=== PATIENT | male | born 1965 | race American Indian/Alaskan Native ===

== ENCOUNTER 2021-07-23 17:02 | Inpatient (IN) | payer MEDICARE, OTHER ==
[2021-07-23 18:08] LABS: Basophils # (A) 0.1 k/uL (0-0.2); Basophils % (A) 1 %; Eosinophils # (A) 0.2 k/uL (0-0.7); Eosinophils % (A) 2 %; HCT 50.1 % (39.0-53.0); HGB 16.5 gm/dL (13.0-17.5); Lymphocytes # (A) 2.6 k/uL (1.0-4.8); Lymphocytes % (A) 27 %; MCV 90.9 fL (80.0-100.0); Mean Platelet Volume 7.5; Monocytes # (A) 0.7 k/uL (0-1.0); Monocytes % (A) 7 %; Neutrophils % (A) 62 %; Platelet Count 276 k/uL (150-450); RBC 5.51 m/uL (4.30-5.90); RDW 13.4 % (11.5-15.5); WBC 9.7 k/uL (3.8-10.6)
--- NOTE | 2021-07-23 18:08 | ED ---
Weakness HPI - General Chief complaint: Weakness Stated complaint: sore throat Time Seen by Provider: 07/23/21 17:24 Source: patient, family, RN notes reviewed Mode of arrival: wheelchair Limitations: no limitations - History of Present Illness Initial comments: This is a 56-year-old male who presents with his son with complaints of generalized and left-sided weakness is been going on for at least several weeks. 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 No trauma reported as of a history of hypertension hyperlipidemia COPD he has a smoker. No fevers chills or sweats he states he was started be worked up in [facility] but is moving to [place] to be near family and for further care. He has no local physician he states. He has had some workup done at [facility] we're try ing to obtain information at this time. MD Complaint: generalized weakness, focal weakness, numbness, tingling - Related Data Home Medications Medication Instructions Recorded Confirmed Losartan/Hydrochlorothiazide 1 tab PO DAILY 07/23/21 07/23/21 [Losartan-Hctz 100-25 mg Tab] Metoprolol Succinate (ER) [Toprol 100 mg PO DAILY 07/23/21 07/23/21 Xl] Rosuvastatin Calcium [Crestor] 10 mg PO DAILY 07/23/21 07/23/21 Allergies Allergy/AdvReac Type Severity Reaction Status Date / Time No Known Allergies Allergy Verified 07/23/21 19:39 Review of Systems ROS Statement: Those systems with pertinent positive or pertinent negative responses have been documented in the HPI. ROS Other: All systems not noted in ROS Statement are negative. Past Medical History Past Medical History: Hyperlipidemia, Hypertension History of Any Multi-Drug Resistant Organisms: None Reported Past Surgical History: No Surgical Hx Reported Past Psychological History: Anxiety, Depression, PTSD Smoking Status: Current every day smoker Past Alcohol Use History: None Reported Past Drug Use History: Marijuana General Exam - General Exam Comments Initial Comments: This a well-developed well-nourished awake alert oriented times 3 male Limitations: no limitations General appearance: alert, in no apparent distress Head exam: Present: atraumatic, normocephalic, normal inspection Eye exam: Present: normal appearance, PERRL, EOMI. Absent: scleral icterus, conjunctival injection, periorbital swelling ENT exam: Present: mucous membranes moist, other (Alec on the right throat no exudates) Neck exam: Present: full ROM, other (Palpable lymphadenopathy mass right). Absent: tenderness, meningismus, lymphadenopathy Respiratory exam: Present: normal lung sounds bilaterally. Absent: respiratory distress, wheezes, rales, rhonchi, stridor Cardiovascular Exam: Present: regular rate, normal rhythm, normal heart sounds. Absent: systolic murmur, diastolic murmur, rubs, gallop, clicks GI/Abdominal exam: Present: soft, normal bowel sounds. Absent: distended, tenderness, guarding, rebound, rigid Extremities exam: Present: normal inspection, full ROM, normal capillary refill. 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 Absent: rash Course Vital Signs 07/23/21 07/23/21 07/23/21 17:05 18:33 21:28 Temperature 97.6 F Pulse Rate 94 89 78 Respiratory 18 18 18 Rate Blood Pressure 170/113 164/94 184/121 O2 Sat by Pulse 93 L 94 L 97 Oximetry Medical Decision Making - Medical Decision Making I did discuss findings with the patient and his son was present patient is agreed to be admitted he will be seen by oncology and neurology. Patient is not a candidate for intervention at this time with respect to neurological deficit. Patient apparently is up and take his blood pressure medications. He has had weight loss. Additionally the pertinent medical evaluations from [facility] R not yet in this facility. - Lab Data Result diagrams: 07/23/21 17:54 07/23/21 17:54 Lab Results 07/23/21 07/23/21 07/23/21 Range/Units 17:54 17:54 17:54 WBC 9.7 (3.8-10.6) k/uL RBC 5.51 (4.30-5.90) m/uL Hgb 16.5 (13.0-17.5) gm/dL Hct 50.1 (39.0-53.0) % MCV 90.9 (80.0-100.0) fL MCH 30.0 (25.0-35.0) pg MCHC 33.0 (31.0-37.0) g/dL RDW 13.4 (11.5-15.5) % Plt Count 276 (150-450) k/uL MPV 7.5 Neutrophils % 62 % Lymphocytes % 27 % Monocytes % 7 % Eosinophils % 2 % Basophils % 1 % Neutrophils # 6.0 (1.3-7.7) k/uL Lymphocytes # 2.6 (1.0-4.8) k/uL Monocytes # 0.7 (0-1.0) k/uL Eosinophils # 0.2 (0-0.7) k/uL Basophils # 0.1 (0-0.2) k/uL PT 10.2 (9.0-12.0) sec INR 0.9 (<1.2) APTT 24.9 (22.0-30.0) sec Sodium 141 (137-145) mmol/L Potassium 3.6 (3.5-5.1) mmol/L Chloride 105 (98-107) mmol/L Carbon Dioxide 26 (22-30) mmol/L Anion Gap 10 mmol/L BUN 20 (9-20) mg/dL Creatinine 0.81 (0.66-1.25) mg/dL Est GFR (CKD-EPI)AfAm >90 (>60 ml/min/1.73 sqM) Est GFR (CKD-EPI)NonAf >90 (>60 ml/min/1.73 sqM) Glucose 87 (74-99) mg/dL Calcium 9.3 (8.4-10.2) mg/dL Magnesium 2.3 (1.6-2.3) mg/dL Total Bilirubin 0.7 (0.2-1.3) mg/dL AST 43 (17-59) U/L ALT 38 (4-49) U/L Alkaline Phosphatase 116 (38-126) U/L Creatine Kinase 543 H (55-170) U/L Troponin I (0.000-0.034) ng/mL NT-Pro-B Natriuret Pep pg/mL Total Protein 7.6 (6.3-8.2) g/dL Albumin 4.3 (3.5-5.0) g/dL 07/23/21 07/23/21 Range/Units 17:54 17:54 WBC (3.8-10.6) k/uL RBC (4.30-5.90) m/uL Hgb (13.0-17.5) gm/dL Hct (39.0-53.0) % MCV (80.0-100.0) fL MCH (25.0-35.0) pg MCHC (31.0-37.0) g/dL RDW (11.5-15.5) % Plt Count (150-450) k/uL MPV Neutrophils % % Lymphocytes % % Monocytes % % Eosinophils % % Basophils % % Neutrophils # (1.3-7.7) k/uL Lymphocytes # (1.0-4.8) k/uL Monocytes # (0-1.0) k/uL Eosinophils # (0-0.7) k/uL Basophils # (0-0.2) k/uL PT (9.0-12.0) sec INR (<1.2) APTT (22.0-30.0) sec Sodium (137-145) mmol/L Potassium (3.5-5.1) mmol/L Chloride (98-107) mmol/L Carbon Dioxide (22-30) mmol/L Anion Gap mmol/L BUN (9-20) mg/dL Creatinine (0.66-1.25) mg/dL Est GFR (CKD-EPI)AfAm (>60 ml/min/1.73 sqM) Est GFR (CKD-EPI)NonAf (>60 ml/min/1.73 sqM) Glucose (74-99) mg/dL Calcium (8.4-10.2) mg/dL Magnesium (1.6-2.3) mg/dL Total Bilirubin (0.2-1.3) mg/dL AST (17-59) U/L ALT (4-49) U/L Alkaline Phosphatase (38-126) U/L Creatine Kinase (55-170) U/L Troponin I <0.012 (0.000-0.034) ng/mL NT-Pro-B Natriuret Pep 105 pg/mL Total Protein (6.3-8.2) g/dL Albumin (3.5-5.0) g/dL - EKG Data -: EKG Interpreted by Me EKG shows normal: sinus rhythm, axis, intervals, QRS complexes, ST-T waves Rate: normal EKG Comments: Sinus rhythm a 71 appear interval 174 QRS 84 QT since QTC 414/449 st-t wave changes - Radiology Data Radiology results: report reviewed (Imaging reviewed evidence of a hypodense area in the right brain please see complete report CT with contrast does not seem to demonstrate evidence of mass at this time.), image reviewed Disposition Clinical Impression: CVA (cerebral vascular accident), Neck mass, Failure to thrive in adult Disposition: ADMITTED IP TO THIS [facility] Condition: Fair Referrals: None,Stated [Primary Care Provider] - 1-2 days
[2021-07-23 18:16] LABS: INR 0.9 (<1.2); Partial Thromboplastin Time 24.9 sec (22.0-30.0); Prothrombin Time 10.2 sec (9.0-12.0)
[2021-07-23 18:17] LABS: ALT 38 U/L (4-49); AST 43 U/L (17-59); African American GFR (CKD) >90 (>60 ml/min/1.73 sqM); Albumin 4.3 g/dL (3.5-5.0); Alkaline Phosphatase 116 U/L (38-126); Anion Gap 10 mmol/L; Blood Urea Nitrogen 20 mg/dL (9-20); Calcium 9.3 mg/dL (8.4-10.2); Carbon Dioxide 26 mmol/L (22-30); Chloride 105 mmol/L (98-107); Creatine Kinase 543 U/L (55-170); Glucose 87 mg/dL (74-99); Magnesium 2.3 mg/dL (1.6-2.3); Non-African American GFR(CKD) >90 (>60 ml/min/1.73 sqM); Potassium 3.6 mmol/L (3.5-5.1); Sodium 141 mmol/L (137-145); Total Bilirubin 0.7 mg/dL (0.2-1.3); Total Protein 7.6 g/dL (6.3-8.2)
--- NOTE | 2021-07-23 18:30 | CT ---
EXAMINATION TYPE: CT brain wo con DATE OF EXAM: 07/23/2021 COMPARISON: None HISTORY: LT side weakness, progressing. Pt just diagnosed w/throat ca. CT DLP: 1173.4 mGycm Automated exposure control for dose reduction was used. Images of the brain obtained without contrast. Ventricles have normal size. There is irregular hypodensity in the white matter of the right posterio r frontal lobe and right parietal lobe. There is no mass effect. There is no evidence of intracranial hemorrhage. The calvarium is intact. The skull base is intact. There is normal aeration of the masto id sinuses. IMPRESSION: Right hemisphere white matter hypodensity is irregular. No mass effect. This could relate to large pradhan bacute right internal capsule infarct. Contrast exam recommended to exclude a tumor.
--- NOTE | 2021-07-23 18:37 | XR ---
EXAMINATION TYPE: XR chest 2V DATE OF EXAM: 07/23/2021 COMPARISON: NONE HISTORY: Weakness TECHNIQUE: 2 views FINDINGS: Heart and mediastinum are normal. Lungs are clear. Diaphragm is normal. Bony thorax is inta ct. IMPRESSION: Normal chest.
[2021-07-23] MEDS ORDERED: RX INFO: IV CONTRAST WAS GIVEN 1 EACH MISC MISCELLANE PRN (19:24)
--- NOTE | 2021-07-23 20:19 | CT ---
EXAMINATION TYPE: CT brain w con DATE OF EXAM: 07/23/2021 COMPARISON: Today HISTORY: possible ida mass CT DLP: 1111.4 mGycm Automated exposure control for dose reduction was used. CONTRAST: Performed with IV Contrast, patient injected with 100 mL of Isovue 300. Ventricles have normal size. There is no mass effect. There is no midline shift. There is no sign of intracranial hemorrhage. There is multifocal hypodensity involving the right cerebral hemisphere in t he right internal capsule measuring 7 x 2.5 cm. There is no pathologic enhancement. Calvarium is inta ct. There is normal aeration of the mastoid sinuses. IMPRESSION: Hypodensity in the right temporal lobe and right internal capsule consistent with subacute infarct. N o pathologic enhancement seen to suggest a tumor.
[2021-07-23] MEDS ORDERED: ASPIRIN 325 MG TAB PO STA (21:42)
[2021-07-23] MEDS ORDERED: SODIUM CHLORIDE 0.9% 500 ML 500 ML IV STA (21:46)
[2021-07-23] MEDS ORDERED: METOPROLOL TARTRATE 5 MG/5 ML VIAL IVP STA (21:46)
[2021-07-23] MEDS ORDERED: HYDROmorphone 1 MG/ML 1 ML SYRINGE IVP STA (21:47)
[2021-07-23] MEDS ORDERED: ACETAMINOPHEN TAB 325 MG TAB PO PRN (22:00)
[2021-07-23] MEDS: SODIUM CHLORIDE 0.9% 1,000 ML IV SCH (22:33)
[2021-07-24] MEDS: METOPROLOL SUCCINATE (ER) 100 MG TAB.ER.24H PO SCH (05:58)
[2021-07-24] MEDS: LOSARTAN-HCTZ 50-12.5 MG 1 EACH TAB PO SCH (05:58)
[2021-07-24] MEDS: ASPIRIN 325 MG TAB PO SCH (09:00)
[2021-07-24] MEDS: NICOTINE 14MG/24HR PATCH TRANSDERM SCH (09:01)
[2021-07-24] MEDS: DEXAMETHASONE SOD PHOSPHATE 4 MG/ML 1 ML VIAL IV SCH ×3 (09:01→21:06)
[2021-07-24] MEDS: ATORVASTATIN 20 MG TAB PO SCH (09:01)
[2021-07-24] MEDS: PANTOPRAZOLE 40 MG/10 ML VIAL IVP SCH ×2 (09:02→21:06)
--- NOTE | 2021-07-24 09:31 | P.HPIM ---
History of Present Illness Is a pleasant 56-year-old male came in with the comments of left sided weakness involving the left arm and left face and left leg patient's symptoms started about a week ago. Patient had a CT of the head which did show hypodensity of the right temporal lobe and right middle Still in a subacute infarct in that area which explains his symptoms. Patient does have a tumor on the right neck which was biopsied results of which are still pending and that he was told by the ENT specialist is that is most probably cancer. Patient moved from [place] area wanted to continue his treatment here at [facility] oncology was consulted. Patient denied any fever chills patient smokes about 10 cigarettes per day. Patient to tried Chantix in the past which make him psychotic because of which he has to discontinue that. REVIEW OF SYSTEMS: CONSTITUTIONAL: No fever, no malaise, no fatigue. HEENT: No recent visual problems or hearing problems. Denied any sore throat. CARDIOVASCULAR: No chest pain, orthopnea, PND, no palpitations, no syncope. PULMONARY: No shortness of breath, no cough, no hemoptysis. GASTROINTESTINAL: No diarrhea, no nausea, no vomiting, no abdominal pain. NEUROLOGICAL: As mentioned in HPI. HEMATOLOGICAL: Denies any bleeding or petechiae. GENITOURINARY: Denies any burning micturition, frequency, or urgency. MUSCULOSKELETAL/RHEUMATOLOGICAL: Denies any joint pain, swelling, or any muscle pain. ENDOCRINE: Denies any polyuria or polydipsia. The rest of the 14-point review of systems is negative. PHYSICAL EXAMINATION: GENERAL: The patient is alert and oriented x3, not in any acute distress. Well developed, well nourished. HEENT: Pupils are round and equally reacting to light. EOMI. No scleral icterus. No conjunctival pallor. Normocephalic, atraumatic. No pharyngeal erythema. No thyromegaly. CARDIOVASCULAR: S1 and S2 present. No murmurs, rubs, or gallops. PULMONARY: Chest is clear to auscultation, no wheezing or crackles. ABDOMEN: Soft, nontender, nondistended, normoactive bowel sounds. No palpable organomegaly. MUSCULOSKELETAL: No joint swelling or deformity. EXTREMITIES: No cyanosis, clubbing, or pedal edema. NEUROLOGICAL: She and has 4+/5 strength in the left upper and lower extremity there is some facial droop as well SKIN: No rashes. Assessment and plan -Subacute cerebral vascular infarct involving the right middle severe artery territory probably thrombotic in the right intracapsular area involving left side of the body. She will be continued on statin and aspirin patient does take aspirin at home may need to add Plavix. LDL will be obtained carotid Doppler w as ordered along with echocardiogram, physical therapy and occupational therapy were consulted -Mass in the neck area which was biopsied probably squamous cell carcinoma or oropharyngeal carcinoma, oncology was consulted. -Nicotine use: Counseling was provided -Hyperlipidemia -Hypertension -Depression -DVT prophylaxis: Early ambulation Past Medical History Past Medical History: Hyperlipidemia, Hypertension History of Any Multi-Drug Resistant Organisms: None Reported Past Surgical History: No Surgical Hx Reported Past Psychological History: Anxiety, Depression, PTSD Smoking Status: Current every day smoker Past Alcohol Use History: None Reported Past Drug Use History: Marijuana Medications and Allergies Home Medications Medication Instructions Recorded Confirmed Type Losartan/Hydrochlorothiazide 1 tab PO DAILY 07/23/21 07/23/21 History [Losartan-Hctz 100-25 mg Tab] Metoprolol Succinate (ER) [Toprol 100 mg PO DAILY 07/23/21 07/23/21 History Xl] Rosuvastatin Calcium [Crestor] 10 mg PO DAILY 07/23/21 07/23/21 History Allergies Allergy/AdvReac Type Severity Reaction Status Date / Time No Known Allergies Allergy Verified 07/23/21 19:39 Physical Exam Vitals: Vital Signs Temp Pulse Resp BP Pulse Ox 07/24/21 07:44 63 18 158/89 97 07/24/21 07:00 158/89 07/24/21 05:43 97.4 F L 83 18 182/116 96 07/24/21 02:00 58 L 18 174/110 98 07/24/21 00:00 50 L 18 158/104 94 L 07/23/21 22:35 77 18 179/100 97 07/23/21 21:28 78 18 184/121 97 07/23/21 18:33 89 18 164/94 94 L 07/23/21 17:05 97.6 F 94 18 170/113 93 L Intake and Output 07/23/21 07/24/21 07/24/21 22:59 06:59 14:59 Other: Weight 104.326 kg Results CBC & Chem 7: 07/23/21 17:54 07/23/21 17:54 Labs: Abnormal Lab Results - Last 24 Hours (Table) 07/23/21 Range/Units 17:54 Creatine Kinase 543 H (55-170) U/L
[2021-07-24] MEDS ORDERED: MORPHINE SULFATE 4 MG/ML SYRINGE IVP PRN (10:35)
[2021-07-24] MEDS ORDERED: LORazepam 2 MG/ML INJ IV PRN (10:35)
--- NOTE | 2021-07-24 10:40 | US ---
EXAMINATION TYPE: US carotid duplex BILAT DATE OF EXAM: 07/24/2021 COMPARISON: CT Brain 07/23/2021 CLINICAL HISTORY: 56-year-old male Stenosis. Left hand weakness, slurred speech; smoker x 40 years; p atient stated has enlarged neck lymph nodes with CA diagnosis. TECHNIQUE: Carotid duplex ultrasound examination. Indirect Doppler criteria was utilized. FINDINGS: EXAM MEASUREMENTS: RIGHT: Peak Systolic Velocity (PSV) cm/sec ----- Right CCA: 46.8 ----- Right ICA: 43.5 ----- Right ECA: 114.0 ICA/CCA ratio: 0.9 RIGHT: End Diastole cm/sec ----- Right CCA: 7.7 ----- Right ICA: 5.1 ----- Right ECA: 20.4 LEFT: Peak Systolic Velocity (PSV) cm/sec ----- Left CCA: 33.2 ----- Left ICA: 70.3 ----- Left ECA: 143.1 ICA/CCA ratio: 2.1 LEFT: End Diastole cm/sec ----- Left CCA: 10.4 ----- Left ICA: 28.4 ----- Left ECA: 22.0 VERTEBRALS (direction of flow): Right Vertebral: Antegrade Left Vertebral: Antegrade Rhythm: Normal Manager [employer] Communication notes: Irregular mild to moderate intimal wall thickening is noted at in bilateral caroti d systems with mildly elevated PSV in Left ECA. Incidental finding: Enlarged right upper neck nodes are seen with larger lymph node = 3.8 x 3.4 x 2.7 cm. IMPRESSION: 1. Mild to moderate atherosclerotic change at the bilateral bifurcations. 2. No hemodynamically significant ICA stenosis on either side. 3. Incidental right upper cervical lymphadenopathy measuring up to 3.4 cm short axis. Criteria for Assigning % of Stenosis / Diameter reduction (Estimation based on the indirect measurements of the internal carotid artery velocities (ICA PSV). 1. Normal (no stenosis)=ICA PSV < 125 cm/s: ratio < 2.0: ICA EDV<40 cm/s. 2. Less than 50% stenosis=ICA PSV < 125 cm/s: ratio < 2.0: ICA EDV<40 cm/s. 3. 50 to 69% stenosis=ICA PSV of 125 to 230 cm/s: ration 2.0 ? 4.0: ICA EDV 40-100 cm/s. 4. Greater than 70% stenosis to near occlusion= ICA PSV > 230 cm/s: ratio > 4.0: ICA EDV > 100 cm/s. 5. Near occlusion= ICA PSV velocities may be low or undetectable: variable ratio and ICA EDV. 6. Total occlusion=unable to detect flow.
[2021-07-24] MEDS ORDERED: IOPAMIDOL CONTRAST (ORAL USE) VIAL PO PRN (11:03)
[2021-07-24 11:16] LABS: Chol/HDL Ratio 5.21 Ratio; HDL Cholesterol 31.3 mg/dL (40.00-60.00); LDL Cholesterol,Calculated 110.3 mg/dL (0.0-131.0); VLDL Calculation 21.4 mg/dL (5.00-40.00)
[2021-07-24] MEDS: SODIUM CHLORIDE 0.9% 1,000 ML IV SCH (11:35)
--- NOTE | 2021-07-24 11:35 | P.CONS ---
History of Present Illness - Reason for Consult Consult date: 07/24/21 Neck Mass Requesting physician: Parminder Adan - Chief Complaint Left Arm Weakness - History of Present Illness Maninder is a 56 year old male patient who presents for left arm weakness. He recently underwent work-up for neck mass in [facility], there records have been requested. CT Brain revealed Hypodensities (Likely consistent with CVA, however difficult to determine). Discussed in detail with Radiation oncology and will move forward with MRI and Start Dexamethasone in the interim . Review of Systems All systems: negative Constitutional: Reports as per HPI Past Medical History Past Medical History: Hyperlipidemia, Hypertension History of Any Multi-Drug Resistant Organisms: None Reported Past Surgical History: No Surgical Hx Reported Past Psychological History: Anxiety, Depression, PTSD Smoking Status: Current every day smoker Past Alcohol Use History: None Reported Past Drug Use History: Marijuana Medications and Allergies Home Medications Medication Instructions Recorded Confirmed Type Losartan/Hydrochlorothiazide 1 tab PO DAILY 07/23/21 07/23/21 History [Losartan-Hctz 100-25 mg Tab] Metoprolol Succinate (ER) [Toprol 100 mg PO DAILY 07/23/21 07/23/21 History Xl] Rosuvastatin Calcium [Crestor] 10 mg PO DAILY 07/23/21 07/23/21 History Allergies Allergy/AdvReac Type Severity Reaction Status Date / Time No Known Allergies Allergy Verified 07/23/21 19:39 Physical Exam Vitals: Vital Signs Temp Pulse Resp BP Pulse Ox 07/24/21 07:44 63 18 158/89 97 07/24/21 07:00 158/89 07/24/21 05:43 97.4 F L 83 18 182/116 96 07/24/21 02:00 58 L 18 174/110 98 07/24/21 00:00 50 L 18 158/104 94 L 07/23/21 22:35 77 18 179/100 97 07/23/21 21:28 78 18 184/121 97 07/23/21 18:33 89 18 164/94 94 L 07/23/21 17:05 97.6 F 94 18 170/113 93 L Intake and Output 07/23/21 07/24/21 07/24/21 22:59 06:59 14:59 Other: Weight 104.326 kg Alert and oriented, Tearful Neck: Mass Speech Slurred Heart RRR Lungs: CTA bases diminished Abdomen: Obese Ext: no edema Alert anxious Results CBC & Chem 7: 07/23/21 17:54 07/24/21 12:11 Labs: Abnormal Lab Results - Last 24 Hours (Table) 07/23/21 Range/Units 17:54 Creatine Kinase 543 H (55-170) U/L CT Scan - head: report reviewed Assessment and Plan Plan: Difficult to differentiate CVA versus Mass: - With underlying Malignancy will further evaluate Brain with MRI - Initated Dex and PPI in interim - Discussed in detail with Dr. Rodriges and patient and son Right Neck Mass: - Will obtain records from [facility], Patient states recent biopsy, although they would not start treatment until he has teeth - Staging CTs - Await final MRI of Brain Discussed in detail with Dr. Rodriges, Dr. Adan, RN, and Patient nad son OK for pain medications at this time
[2021-07-24 12:46] LABS: African American GFR (CKD) >90 (>60 ml/min/1.73 sqM); Anion Gap 7 mmol/L; Blood Urea Nitrogen 17 mg/dL (9-20); Carbon Dioxide 24 mmol/L (22-30); Chloride 106 mmol/L (98-107); Glucose 108 mg/dL (74-99); Non-African American GFR(CKD) >90 (>60 ml/min/1.73 sqM); Sodium 137 mmol/L (137-145)
--- NOTE | 2021-07-24 13:46 | P.CNNES ---
History of Present Illness Consult date: 07/24/21 Requesting physician: Parminder Adan Reason for Consult: Recent CVA History of Present Illness: Patient is a 56-year-old right-handed male, who was recently diagnosed with head and neck cancer about couple weeks ago. Patient states that he saw an ENT specialist for right cervical mass involving the angle of the jaw region. The biopsy confirmed cancer. He was recommended by his ENT specialist to eat and enjoy, as he will be undergoing chemo and radiation which will produce significant weight loss. Patient states for last 2 weeks he has been eating as much as he can, going for fishing. Patient states that yesterday he was in his local down in [facility], had some snack, and took 2 tablets of Tylenol, when he almost fainted. He noticed his voice was garbled, and noticed numbness tingling and weakness of the left hand. He was able to drive back home. His son heard about this, and brought him to the hospital yesterday at 5:02 PM. Patient's vital signs on arrival blood pressure 170/113, pulse rate 94, temperature 97.6. Most recent blood pressure is 197/106. Computed tomography scan of the head showed right hemisphere white matter hypodensities, without mass effect. This could relate to large subacute right internal capsular infarct. Contrast enhanced exam recommended to rule out tumor. Patient has history of smoking cigarettes half pack per day for 45 years. He is used to drink heavily, quit alcohol 20 years ago. He has hypertension for a few years and prediabetes for a few years. Patient does not take any antiplatelet medication at home. Patient subsequently underwent computed tomography scan of the head with IV contrast on 07/23/2021, which revealed hypodensity in the right temporal lobe and right internal capsule consistent with subacute infarct. No pathologic enhancement seen to suggest a tumor. EKG shows normal sinus rhythm. Past Medical History Past Medical History: Hyperlipidemia, Hypertension History of Any Multi-Drug Resistant Organisms: None Reported Past Surgical History: No Surgical Hx Reported Past Psychological History: Anxiety, Depression, PTSD Smoking Status: Current every day smoker Past Alcohol Use History: None Reported Past Drug Use History: Marijuana - Past Family History Father History Unknown: Yes Mother Family Medical History: Congestive Heart Failure (CHF) Medications and Allergies Home Medications Medication Instructions Recorded Confirmed Type Losartan/Hydrochlorothiazide 1 tab PO DAILY 07/23/21 07/23/21 History [Losartan-Hctz 100-25 mg Tab] Metoprolol Succinate (ER) [Toprol 100 mg PO DAILY 07/23/21 07/23/21 History Xl] Rosuvastatin Calcium [Crestor] 10 mg PO DAILY 07/23/21 07/23/21 History Allergies Allergy/AdvReac Type Severity Reaction Status Date / Time No Known Allergies Allergy Verified 07/23/21 19:39 Physical Examination - Vital Signs Vital Signs: Vital Signs Temp Pulse Resp BP Pulse Ox 07/24/21 12:41 75 16 197/106 95 07/24/21 11:38 68 18 188/109 96 07/24/21 07:44 63 18 158/89 97 07/24/21 07:00 158/89 07/24/21 05:43 97.4 F L 83 18 182/116 96 07/24/21 02:00 58 L 18 174/110 98 07/24/21 00:00 50 L 18 158/104 94 L 07/23/21 22:35 77 18 179/100 97 07/23/21 21:28 78 18 184/121 97 07/23/21 18:33 89 18 164/94 94 L 07/23/21 17:05 97.6 F 94 18 170/113 93 L Intake and Output 07/23/21 07/24/21 07/24/21 22:59 06:59 14:59 Other: Weight 104.326 kg Patient is a middle aged male, in no acute distress. Patient is alert awake oriented to time place and person. Speech and language functions are normal. Attention, concentration and fund of knowledge is adequate. Patient can name and repeat very well. No aphasia or dysarthria. On cranial examination, pupils are round and reacting to light, visual moreno are full on confrontation, with no neglect. His extraocular muscles are intact with no nystagmus. Patient has left facial weakness mild degree, central type. His tongue protrudes to the midline. Palatal elevation and sensation normal, hearing and shoulder shrug normal, facial sensation normal. Shoulder shrug normal. On muscle strength testing, there is left pronator drift, and the left arm almost hits the bed. Muscle strength is normal in the right arm and right leg distally and proximally. On the left side, deltoid is 4, biceps 5, triceps 5, welder is 4+5-, hip flexion 4+, ankle dorsiflexion 5. Deep tendon reflexes are (right/left) biceps 1+/2+, brachioradialis 1+/2+, knees 3/3+, ankles 2/3, plantars are downgoing bilaterally. Patient has sustained clonus on the left. Sensory to touch is equal on both sides, except left hand and forearm, which is numb on the left as compared to the right. Patient sometimes neglects left side on double simultaneous stimulation. Temperature sensation was equal in the arms and legs. Cerebellar function showed mild to moderate ataxia for [id number] testing on the left, very mild ataxia for [id number] on the left. Normal coordination on the right side. Tone and bulk of muscles normal. Gait deferred. On general examination, there is no carotid bruit or murmur, S1-S2 audible. Abdomen is soft nontender. Chest is clear. Peripheral pulses are present. No edema. Patient has obvious right lower jaw mass. Results - Laboratory Findings CBC and BMP: 07/23/21 17:54 07/24/21 12:11 Abnormal Lab Findings: Abnormal Labs 07/23/21 07/23/21 07/24/21 17:54 17:54 12:11 Glucose 108 H Creatine Kinase 543 H HDL Cholesterol 31.30 L Assessment and Plan Assessment: * Acute ischemic stroke involving right basal ganglia, and right frontal parietal subcortical white matter, in the right MCA vascular territory. Event appears embolic in nature. Rule out cardiac source. * Hypertension * Diabetes * Tobacco use * Recently diagnosed Plan: * Patient probably had a subacute stroke involving right MCA vascular territory mainly involving the basal ganglia, and subcortical white matter in the frontal parietal region. Underlying malignancy cannot be ruled out. Needs further testing including MRI of the brain with contrast. Patient will be started on aspirin 325 mg daily. I would avoid dual antiplatelet medication at this time, as there is no significant carotid stenosis and some potential concern about underlying malignancy. * Carotid Doppler revealed mild to moderate atherosclerotic change at the bilateral bifurcations. No hemodynamically significant ICA stenosis on either side. Antegrade flow in both vertebral arteries. Incidental right upper cervical lymphadenopathy measuring up to 3.4 cm short axis. * Patient undergoing MRI of the brain with and without contrast and MRA of the neck with and without contrast. We will also check MRA of the head to rule out any intracranial atherosclerotic disease or MCA stenosis. * 2-D echo with bubble study, rule out PFO. * Start telemetry monitoring. * Permissive hypertension for next 24 hours. Treatment blood pressure if systolic blood pressure > 200 mmHg. * Lipid panel with cholesterol 163, LDL 110, HDL 31 and triglycerides 107. Continue Lipitor 20 mg. * DVT prophylaxis. * Hemoglobin A1c * We will follow. Time with Patient: Greater than 30
--- NOTE | 2021-07-24 14:39 | MR ---
EXAMINATION TYPE: MR brain wo/w mraneck wo/w con, MR angio head wo con DATE OF EXAM: 07/24/2021 COMPARISON: Carotid ultrasound earlier today. CT brain studies from yesterday. HISTORY: History throat cancer, failure to thrive, abnormal CT, evaluate for mets. TECHNIQUE: Multiplanar, multisequence images of the brain and brainstem is performed without and with IV contras t, utilizing 10 mL intravenous Gadavist . MRA imaging of the neck performed without and with IV contr ast. 2-D and 3-D reconstructive images created on a independent workstation and reviewed. Time-of-fli ght grand traverse of [place] imaging without contrast. FINDINGS: Diffusion weighted images demonstrate areas of increased signal on diffusion-weighted image s with decreased signal on ADC mapping that show T1 hypointensity and T2 hyperintensity consistent wi th evolving acute infarct involving portions of the right frontal and parietal lobes in the MCA distr ibution corresponding to areas of low density on CT. There is locational scattered focus of T2 hyperintensity seen throughout the white matter bilaterally . The ventricular system and cisternal spaces are normal in size and appearance. The brain volume i s age appropriate. Midline structures demonstrate normal morphology. The craniocervical junction appears within normal limits. Post contrast images demonstrate no abnormal enhancing masses to suggest metastatic disease to the brain. The dural venous sinuses appear patent. The visualized sinuses are clear and the globes are intact. MRA neck images show normal three-vessel origin from the aortic arch. There is no significant stenosi s in the common or internal carotid arteries bilaterally including a level of bilateral carotid bulbs . Patent external carotid arteries bilaterally without significant stenosis is evident. There is small caliber left vertebral artery which becomes stenotic or hypoplastic distally. Larger c aliber dominant right vertebral artery fills the basilar artery. There is no significant focal stenos is or aneurysm in the posterior circulation. Hypoplastic bilateral posterior communicating arteries a re present. Anterior circulation shows patent anterior communicating artery with some fenestration but no focal a neurysm. There is shorter length right middle cerebral artery versus the opposite left side. There is abrupt tapering. Branching vessels are less prominent and smaller caliber versus the opposite left s iasbela. IMPRESSION: 1. Evolving acute infarct in the right middle cerebral artery distribution involving portions of the right frontal and temporal lobe is confirmed. 2. No suspicious enhancing masses to suggest metastatic disease to the brain. 3. No significant stenosis in common or internal carotid arteries bilaterally. 4. Abnormality distal right middle cerebral artery with abrupt tapering suggesting significant narrow ing, I suspect there is complete occlusion of one of the branching vessels both which would help acco unt for the acute infarct. Consider direct catheter angiogram follow-up to further evaluate and/or tr eat. A Yellow level critical message alert has been initiated for Romel Kessler MD via the [employer] Critical Results System on 07/24/2021 2:36 PM. This message alert has been sent to Romel Kessler MD via the preferences provided by the clinician for the receipt of Radiology Critical Findings. Message ID [id number].
--- NOTE | 2021-07-24 15:38 | P.CONS ---
History of Present Illness - Reason for Consult Consult date: 07/24/21 new head/neck cancer Requesting physician: Angus Cummings - Chief Complaint weakness (left sided) - History of Present Illness The patient is a 56-year-old male presenting with left-sided weakness secondary to subacute stroke. 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 He states he has been recommended to undergo chemoradiation, but has not yet initiated any therapy. The patient reports that approximately 2-3 months ago he developed right-sided neck swelling. He states he was not having any dysphagia or odynophagia or weight loss at this time. He was living in [facility], and reports he was evaluated by Dr. Evan Krishnamurthy in ENT. He states that he did a fiberoptic exam and did an FNA of the right neck which revealed cancer. We do not have these records at this time. The patient was apparently recommended to undergo chemoradiation as definitive treatment, but he stated he required some dental work first. He states the first oral surgeon he was referred to was unable to accept his insurance. Since his diagnosis, the patient was planning to move back home to live with his son in [place]. The patient states approximately 1 week ago he was out finishing and developed an acute onset of left-sided weakness and feeling poorly. The patient was apparently driven to the side of the state by his son. He presented to the ER on July 23 [address] [place] [address] a CT scan without contrast revealed a right posterior frontal lobe/parietal lobe hypodensity consistent with possible stroke. A CT scan with contrast showed no enhancement, which made malignancy less likely. The patient subsequently underwent MRI of the brain with MRA of the neck. This confirmed evolving acute infarct in the right MCA distribution involving portions of the right frontal and temporal lobe. There were no suspicious masses in the brain. There was an abnormality noted in the distal right MCA with abrupt tapering suggesting occlusion of one of the branching vessels. Review of Systems Constitutional: Reports weakness, Denies chills, Denies fever Eyes: denies blurred vision Ears, nose, mouth and throat: Reports neck lump, Denies dysphagia, Denies odynophagia Cardiovascular: Denies chest pain Respiratory: Denies congestion, Denies cough Gastrointestinal: Denies BRBPR Genitourinary: Denies dysuria, Denies flank pain Integumentary: Denies rash Neurological: Reports aphasia, Reports change in speech, Reports paresthesias, Denies seizures Psychiatric: Denies anxiety Past Medical History Past Medical History: Hyperlipidemia, Hypertension History of Any Multi-Drug Resistant Organisms: None Reported Past Surgical History: No Surgical Hx Reported Past Psychological History: Anxiety, Depression, PTSD Smoking Status: Current every day smoker Past Alcohol Use History: None Reported Past Drug Use History: Marijuana Medications and Allergies Home Medications Medication Instructions Recorded Confirmed Type Losartan/Hydrochlorothiazide 1 tab PO DAILY 07/23/21 07/23/21 History [Losartan-Hctz 100-25 mg Tab] Metoprolol Succinate (ER) [Toprol 100 mg PO DAILY 07/23/21 07/23/21 History Xl] Rosuvastatin Calcium [Crestor] 10 mg PO DAILY 07/23/21 07/23/21 History Allergies Allergy/AdvReac Type Severity Reaction Status Date / Time No Known Allergies Allergy Verified 07/23/21 19:39 Physical Exam Vitals: Vital Signs Temp Pulse Pulse Resp BP BP Pulse Ox 07/24/21 14:45 97.8 F 77 183/118 93 L 07/24/21 12:41 75 16 197/106 95 07/24/21 11:38 68 18 188/109 96 07/24/21 07:44 63 18 158/89 97 07/24/21 07:00 158/89 07/24/21 05:43 97.4 F L 83 18 182/116 96 07/24/21 02:00 58 L 18 174/110 98 07/24/21 00:00 50 L 18 158/104 94 L 07/23/21 22:35 77 18 179/100 97 07/23/21 21:28 78 18 184/121 97 07/23/21 18:33 89 18 164/94 94 L 07/23/21 17:05 97.6 F 94 18 170/113 93 L - Constitutional General appearance: no acute distress - EENT Eyes: EOMI, PERRLA ENT: NA/AT - Neck Neck: lymphadenopathy (Right neck level II/III palpable adenopathy around 4 cm conglomerate- mobile) - Respiratory Respiratory: bilateral: CTA, wheezing (mild end-exp) - Cardiovascular Rhythm: regular - Gastrointestinal General gastrointestinal: no tenderness - Integumentary Integumentary: no pale, no rash - Neurologic Neurologic: CNII-XII intact - Musculoskeletal Musculoskeletal: left sided weakness (left upper extremity weakness 4/5 plus left facial droop) - Psychiatric Psychiatric: A&O x's 3, appropriate affect Results CBC & Chem 7: 07/23/21 17:54 07/24/21 12:11 Labs: Abnormal Lab Results - Last 24 Hours (Table) 07/23/21 07/23/21 07/24/21 Range/Units 17:54 17:54 12:11 Glucose 108 H (74-99) mg/dL Creatine Kinase 543 H (55-170) U/L HDL Cholesterol 31.30 L (40.00-60.00) mg/dL MRI - head: report reviewed, image reviewed Assessment and Plan Assessment: The patient is a 56-year-old male presenting with left-sided weakness secondary to subacute stroke. 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 He states he has been recommended to undergo chemora diation, but has not yet initiated any therapy. Plan: 1. Subacute CVA: As noted above, the patient is symptomatic with slurred speech and left upper extremity weakness. Review of MRI of brain as well as CT is unremarkable for metastatic disease. Continue CVA management per neurology. 2. Head/neck cancer: As noted above, the patient's workup has been at an outside hospital. Based on his MRA of the neck, I am able to see a 3 x 4 cm abnormal area of enhancement involving the right tonsil/base of tongue region. This likely represents his primary cancer with ipsilateral neck adenopathy. This is highly likely to be a squamous cell carcinoma, but we will request his outside records. He will need dental evaluation with extractions, and ideally would undergo PET/CT prior to treatment initiation. We will discuss this in more detail as his current medical issues are managed. Time with Patient: Greater than 30
[2021-07-24 16:37] LABS: Glucose,Whole Blood 185 mg/dL (75-99)
[2021-07-24 20:23] LABS: Glucose,Whole Blood 136 mg/dL (75-99)
[2021-07-24] MEDS: INSULIN ASPART (NovoLOG) 100 UNIT/ML VIAL SQ SCH (20:58)
[2021-07-24] MEDS: SENNOSIDES-DOCUSATE SODIUM 1 EACH TAB PO SCH (21:06)
--- NOTE | 2021-07-25 03:19 | CT ---
EXAMINATION TYPE: CT ChestAbdPelvis w con DATE OF EXAM: 07/24/2021 COMPARISON: None HISTORY: History of throat cancer, abnormal brain ct. Staging. CT DLP: 1619 mGycm Automated exposure control for dose reduction was used. CONTRAST: Performed with IV Contrast, patient injected with 100 mL of Isovue 300. Images obtained from the thoracic inlet to the floor the pelvis with IV contrast. The lungs are clear of infiltrate. There is no pleural effusion. There is no mediastinal adenopathy. Thoracic aorta is intact. There is no aneurysm or dissection. There are no hilar masses. Heart size i s normal. There is no pericardial effusion. Liver spleen stomach pancreas gallbladder appear normal. The bile ducts are not dilated. There is no adrenal mass. Kidneys show satisfactory contrast opacification. There is no hydronephrosis. Delayed i mages show normal renal excretion. There is no retroperitoneal adenopathy. Ureters are not dilated. B ladder distends smoothly. There is prostatic calcification. There is no inguinal hernia. There is no free fluid in the pelvis. There is no mesenteric edema. There is no ascites or free air. There is no sign of a bowel obstructio n. Appendix appears normal. Thoracic and lumbar vertebra appear intact. There is no evidence of focal bone destruction. There is no compression fracture. There is minor spurring of the endplates. Sternum is intact. The bony pelvis appears intact. Hip joints appear normal. Shoulder joints appear intact. There is no evidence of rib fracture. IMPRESSION: Negative CT scan chest abdomen pelvis. No evidence of metastatic disease.
[2021-07-25 06:00] LABS: Glucose,Whole Blood 101 mg/dL (75-99)
[2021-07-25] MEDS: INSULIN ASPART (NovoLOG) 100 UNIT/ML VIAL SQ SCH ×4 (06:04→21:22)
--- NOTE | 2021-07-25 07:41 | ECHOF ---
Referral Reason:Acute CVA, MEASUREMENTS -------- HEIGHT: 172.7 cm WEIGHT: 104.3 kg BP: IVSd: 1.4 cm (0.6 - 1.1) LVIDd: 3.1 cm (3.9 - 5.3) LVPWd: 1.5 cm (0.6 - 1.1) IVSs: 1.6 cm LVIDs: 1.6 cm LVPWs: 2.0 cm LAESV Index (A-L): 12.16 ml/m Ao Diam: 3.4 cm (2.0 - 3.7) AV Cusp: 2.2 cm (1.5 - 2.6) LA Diam: 3.4 cm (2.7 - 3.8) MV EXCURSION: 7.636 mm (> 18.000) MV EF SLOPE: 40 mm/s (70 - 150) EPSS: 0.6 cm FINDINGS -------- This was a technically good study. The left ventricular size is normal. There is moderate concentric left ventricular hypertrophy. O verall left ventricular systolic function is normal with, an EF between 55 - 60 %. The right ventricle is normal in size. The left atrial size is normal. The right atrial size is normal. Contrast study was performed with 1 iv injection of 8 ccs of agitated normal saline at rest. Interatrial and interventricular septum intact. The aortic valve is trileaflet and appears structurally normal. The mitral valve is normal. There is trace mitral regurgitation. The tricuspid valve appears structurally normal. Trace tricuspid regurgitation present. Right satnam tricular systolic pressure is normal at < 35 mmHg. There is no pulmonic regurgitation present. The aortic root size is normal. Normal inferior vena cava with normal inspiratory collapse consistent with estimated right atrial pre ssure of 5 mmHg. There is no pericardial effusion. CONCLUSIONS -------- 1. The left ventricular size is normal. 2. There is moderate concentric left ventricular hypertrophy. 3. Overall left ventricular systolic function is normal with, an EF between 55 - 60 %. 4. Contrast study was performed with 1 iv injection of 8 ccs of agitated normal saline at rest. 5. There is trace mitral regurgitation. 6. Trace tricuspid regurgitation present. 7. There is no pericardial effusion. VENEER JOINTER HELPER: Cyn Villalpando RDCS
[2021-07-25] MEDS: ASPIRIN 325 MG TAB PO SCH (08:45)
[2021-07-25] MEDS: SENNOSIDES-DOCUSATE SODIUM 1 EACH TAB PO SCH ×2 (08:45→19:38)
[2021-07-25] MEDS: ATORVASTATIN 20 MG TAB PO SCH (08:45)
[2021-07-25] MEDS: METOPROLOL SUCCINATE (ER) 100 MG TAB.ER.24H PO SCH (08:45)
[2021-07-25] MEDS: NICOTINE 14MG/24HR PATCH TRANSDERM SCH (08:46)
[2021-07-25] MEDS: polyethylene glycoL 3350 17 GM POWD.PACK PO SCH (08:46)
[2021-07-25] MEDS: PANTOPRAZOLE 40 MG/10 ML VIAL IVP SCH (08:46)
[2021-07-25] MEDS: LOSARTAN-HCTZ 50-12.5 MG 1 EACH TAB PO SCH (08:46)
[2021-07-25] MEDS: DEXAMETHASONE SOD PHOSPHATE 4 MG/ML 1 ML VIAL IV SCH (08:46)
--- NOTE | 2021-07-25 11:30 | P.PN ---
Subjective 56-year-old male came in with the comments of left sided weakness involving the left arm and left face and left leg patient's symptoms started about a week ago. Patient had a CT of the head which did show hypodensity of the right temporal lobe and right middle Still in a subacute infarct in that area which explains his symptoms. Patient does have a tumor on the right neck which was biopsied results of which are still pending and that he was told by the ENT specialist is that is most probably cancer. Patient moved from [place] area wanted to continue his treatment here at [place] oncology was consulted. Patient denied any fever chills patient smokes about 10 cigarettes per day. Patient to tried Chantix in the past which make him psychotic because of which he has to discontinue that. 07/25/2021 Patient still has weakness on the left side of the body. Patient is being evaluated by [facility] for possible inpatient rehabilitation placement patient had an MRI of the head along with the MRA which showed possible complete occlusion of the distal middle cerebral artery. Patient doesn't have any worsening symptoms of stroke. Neurology is recommending goal antiplatelet therapy. Patient was also evaluated by oncology due to metastatic workup with a CT abdomen and pelvis which did not show any metastatic disease. Patient had an echocardiogram did not show any significant abnormality either. Constitutional: Denied any fatigue denied any fever. Cardio vascular: denied any chest pain, palpitations Gastrointestinal denied any nausea vomiting Pulmonary: Denied any shortness of breath cough Neurologic denied any new focal deficits All inpatient medications were reviewed and appropriate changes in these medications as dictated in the interval history and assessment and plan. PHYSICAL EXAMINATION: GENERAL: The patient is alert and oriented x3, not in any acute distress. Well developed, well nourished. HEENT: Pupils are round and equally reacting to light. EOMI. No scleral icterus. No conjunctival pallor. Normocephalic, atraumatic. No pharyngeal erythema. No thyromegaly. CARDIOVASCULAR: S1 and S2 present. No murmurs, rubs, or gallops. PULMONARY: Chest is clear to auscultation, no wheezing or crackles. ABDOMEN: Soft, nontender, nondistended, normoactive bowel sounds. No palpable organomegaly. MUSCULOSKELETAL: No joint swelling or deformity. EXTREMITIES: No cyanosis, clubbing, or pedal edema. NEUROLOGICAL: She and has 4+/5 strength in the left upper and lower extremity there is some facial droop as well SKIN: No rashes. Assessment and plan -Subacute cerebral vascular infarct involving the right middle cerebral artery territory probably thrombotic in the right intracapsular area involving left side of the body. She will be continued on statin and aspirin and Plavix. LDL is 110 patient's hemoglobin A1c is 5.9, echocardiogram and MRI, MRA as well as CT abdomen and pelvis, chest as mentioned above. Patient is being evaluated for inpatient intimidation placement -Mass in the neck area which was biopsied probably squamous cell carcinoma or oropharyngeal carcinoma, oncology evaluated the patient metastatic workup is negative further management as an outpatient. -Nicotine use: Counseling was provided -Hyperlipidemia -Hypertension -Depression -DVT prophylaxis: Early ambulation Objective - Vital Signs Vital signs: Vital Signs Temp 97.7 F 07/25/21 08:00 Pulse 79 07/25/21 08:00 Resp 16 07/25/21 03:50 BP 176/110 07/25/21 08:00 Pulse Ox 95 07/25/21 08:00 Intake & Output 07/24/21 07/25/21 07/25/21 18:59 06:59 18:59 Intake Total 120 480 120 Output Total 450 Balance 120 30 120 Weight 103.2 kg Intake: Oral 120 480 120 Output: Urine 450 Other: # Voids 3 - Labs CBC & Chem 7: 07/23/21 17:54 07/24/21 12:11 Labs: Abnormal Lab Results - Last 24 Hours (Table) 07/24/21 07/24/21 07/24/21 Range/Units 12:11 16:35 20:11 Glucose 108 H (74-99) mg/dL POC Glucose (mg/dL) 185 H 136 H (75-99) mg/dL 07/25/21 Range/Units 05:41 Glucose (74-99) mg/dL POC Glucose (mg/dL) 101 H (75-99) mg/dL
[2021-07-25 11:51] LABS: Glucose,Whole Blood 93 mg/dL (75-99)
[2021-07-25] MEDS: amLODIPine 5 MG TAB PO SCH (12:24)
[2021-07-25] MEDS: CLOPIDOGREL 75 MG TAB PO SCH (12:24)
--- NOTE | 2021-07-25 12:27 | P.CONS ---
History of Present Illness - Chief Complaint Gait disturbance, left hemiparesthesias - History of Present Illness I had the opportunity to see patient for inpatient rehab consultation with regard to gait disturbance. Patient admitted to [facility] July 23 with acute onset left-sided weakness. Seen by neurology, . his son. Seen by Dr. 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 Chest x-ray negative. Head CT demonstrates acute right temporal and internal capsule infarcts. Negat nahun for tumor. Carotid Doppler demonstrates mild to moderate bilateral atherosclerosis. Brain MRI/MRA with some sternal doses left vertebral. CT chest abdomen and pelvis negative. PT and OT prescribed but I do not observe any notes. Speech therapy reports speech intelligible. Previous functional history as elicited patient: 56-year-old right-handed white male is single lives and 2 floor home with son. Patient is on disability. Son works full-time. Patient previously independent with cooking, laundry, driving, standing shower and gait without device one week prior to admission. PCP was Dr. White in [place]. Denies tobacco or alcohol. Review of Systems Review of systems: ENT: Denies sneezes or discharge. Eyes: Denies discharge or photophobia. Cardiac: Denies chest pain or palpitation. Pulmonary: Denies cough or shortness of breath. Gastrointestinal: Denies nausea, emesis, constipation, diarrhea. Genitourinary: Denies discharge or frequency. Musculoskeletal: Denies muscle or bone aches. Neurologic: Left-sided weakness and numbness. Endocrine: Denies shakes or sweats. Oncology: Denies cancers. Dermatologic: Denies rash, itching, pruritus. ALLERGY/immunology: Denies sneezes, rashes. Past Medical History Past Medical History: Hyperlipidemia, Hypertension History of Any Multi-Drug Resistant Organisms: None Reported Past Surgical History: No Surgical Hx Reported Past Psychological History: Anxiety, Depression, PTSD Smoking Status: Current every day smoker Past Alcohol Use History: None Reported Past Drug Use History: Marijuana - Past Family History Father History Unknown: Yes Mother Family Medical History: Congestive Heart Failure (CHF) Medications and Allergies Home Medications Medication Instructions Recorded Confirmed Type Losartan/Hydrochlorothiazide 1 tab PO DAILY 07/23/21 07/23/21 History [Losartan-Hctz 100-25 mg Tab] Metoprolol Succinate (ER) [Toprol 100 mg PO DAILY 07/23/21 07/23/21 History Xl] Rosuvastatin Calcium [Crestor] 10 mg PO DAILY 07/23/21 07/23/21 History Allergies Allergy/AdvReac Type Severity Reaction Status Date / Time No Known Allergies Allergy Verified 07/23/21 19:39 Physical Exam Vitals: Vital Signs Temp Pulse Pulse Resp BP BP Pulse Ox 07/25/21 08:00 97.7 F 79 176/110 95 07/25/21 03:50 98.5 F 58 L 16 138/96 97 07/25/21 02:00 65 16 07/25/21 00:00 98.2 F 65 16 184/110 93 L 07/24/21 20:00 98.4 F 80 18 177/100 94 L 07/24/21 16:00 71 07/24/21 14:45 97.8 F 77 183/118 93 L 07/24/21 12:41 75 16 197/106 95 Intake and Output 07/24/21 07/25/21 07/25/21 22:59 06:59 14:59 Intake Total 120 480 120 Output Total 450 Balance 120 30 120 Intake: Oral 120 480 120 Output: Urine 450 Other: # Voids 1 3 Weight 103.2 kg Skin: Good color, texture, turgor. General: Overweight build and comfortable appearance. Head: Normocephalic, atraumatic. Eyes: Symmetric. Pupils equal round. Ears: Symmetric. Hearing within normal limits. Mouth: Clear. Neck: Supple. Carotid without bruit. Cardiac: Regular rate and rhythm. Lungs: Clear anteriorly and posteriorly. Abdomen: Soft active nontender. Extremities: Normal tone. Neurological: Mental status: Alert, cooperative, pleasant. Cranial nerves: Symmetric facial tone and trapezius. Motor: Normal strength and isolation right side. Left arm in flexion synergy and left leg in extension synergy. Sensation: Intact throughout. DTRs: Symmetric and equal throughout. Mobility: Sits with assistance. Results CBC & Chem 7: 07/23/21 17:54 07/24/21 12:11 Labs: Abnormal Lab Results - Last 24 Hours (Table) 07/24/21 07/24/21 07/24/21 Range/Units 12:11 16:35 20:11 Glucose 108 H (74-99) mg/dL POC Glucose (mg/dL) 185 H 136 H (75-99) mg/dL 07/25/21 Range/Units 05:41 Glucose (74-99) mg/dL POC Glucose (mg/dL) 101 H (75-99) mg/dL Assessment and Plan (1) CVA (cerebral vascular accident) Current Visit: Yes Status: Acute Code(s): I63.9 - CEREBRAL INFARCTION, UNSPECIFIED SNOMED Code(s): 862833408 (2) Neck mass Current Visit: Yes Status: Acute Code(s): R22.1 - LOCALIZED SWELLING, MASS AND LUMP, NECK SNOMED Code(s): 004215821 Plan: Impression: 1. Gait disturbance due to stroke result in left hemiparesthesias. 2. Recent had neck cancer most likely squamous. 3. Hypertension. 4. Dyslipidemia. Comments and plan: At this time speech therapies following patient. PT and OT prescribed. Will require PT and OT notes for any possible inpatient rehab which would seem likely.
[2021-07-25 14:02] VITALS: BMI 34.6
[2021-07-25 16:51] LABS: Glucose,Whole Blood 126 mg/dL (75-99)
--- NOTE | 2021-07-25 17:11 | P.PN ---
Subjective Progress Note Date: 07/25/21 Principal diagnosis: head/neck malignancy?, CVA In f/u today pt states he is actually feeling pretty good. He slept well last night and he ate food today. He does note some mild dysphagia/odynophagia with certain foods but he does ok with soft things and liquids so far. Denies any other c/o. Objective - Vital Signs Vital signs: Vital Signs Temp 97.7 F 07/25/21 08:00 Pulse 79 07/25/21 08:00 Resp 16 07/25/21 03:50 BP 176/110 07/25/21 08:00 Pulse Ox 95 07/25/21 08:00 Intake & Output 07/24/21 07/25/21 07/25/21 18:59 06:59 18:59 Intake Total 120 480 120 Output Total 450 Balance 120 30 120 Weight 103.2 kg Intake: Oral 120 480 120 Output: Urine 450 Other: # Voids 3 - Constitutional General appearance: Present: average body habitus, cooperative, no acute distress - EENT Eyes: Present: anicteric sclerae ENT: Present: hearing grossly normal - Neck Neck: Present: lymphadenopathy (rt neck/submandibular4-5cm hard mass, fixed. No other cervical or axillary adenopathy) - Respiratory Respiratory: bilateral: CTA - Cardiovascular Rhythm: regular Heart sounds: normal: S1, S2 Abnormal Heart Sounds: Absent: systolic murmur, diastolic murmur, rub, S3 Gallop, S4 Gallop, click, other - Peripheral edema leg Peripheral Edema: bilateral: None - Gastrointestinal General gastrointestinal: Present: normal bowel sounds, soft - Psychiatric Psychiatric: Present: A&O x's 3, appropriate affect, intact judgment & insight - Labs CBC & Chem 7: 07/23/21 17:54 07/24/21 12:11 Labs: Abnormal Lab Results - Last 24 Hours (Table) 07/23/21 07/24/21 07/24/21 Range/Units 17:54 12:11 16:35 Glucose 108 H (74-99) mg/dL POC Glucose (mg/dL) 185 H (75-99) mg/dL HDL Cholesterol 31.30 L (40.00-60.00) mg/dL 07/24/21 07/25/21 Range/Units 20:11 05:41 Glucose (74-99) mg/dL POC Glucose (mg/dL) 136 H 101 H (75-99) mg/dL HDL Cholesterol (40.00-60.00) mg/dL - Imaging and Cardiology CT scan - abdomen: report reviewed CT scan - chest: report reviewed CT scan - pelvis: report reviewed MRI - head: report reviewed Assessment and Plan (1) Neck mass Narrative/Plan: Still pending reports from biopsy done in [facility]-confirmed with RN that request was sent. CT CAP and MRI brain results reviewed with pt. No evidence of metastatic cancer. Will stop dex. Pt stated that he will be staying in the area for now. He wants to pursue treatment here. We will plan for f/u. Based on pathology from neck mass biopsy treatment plan can be defined. Rad Onc has already evaluated pt. Current Visit: Yes Status: Acute Priority: High Code(s): R22.1 - LOCALIZED SWELLING, MASS AND LUMP, NECK SNOMED Code(s): 190615827 Plan: Pending Neuro eval and recs.
[2021-07-25] MEDS: PANTOPRAZOLE 40 MG TABLET PO SCH (19:42)
[2021-07-25 20:24] LABS: Glucose,Whole Blood 92 mg/dL (75-99)
--- NOTE | 2021-07-25 23:42 | P.PN ---
Subjective Progress Note Date: 07/25/21 Patient was seen for a follow-up. Patient states he is feeling much better. His arm is not as numb. He is moving around better, not leaning as much as before. He is able to get up by himself. No new focal symptoms. No headache. Objective - Vital Signs Vital signs: Vital Signs Temp 97.4 F L 07/25/21 20:21 Pulse 70 07/25/21 20:21 Resp 20 07/25/21 20:21 BP 190/115 07/25/21 20:21 Pulse Ox 97 07/25/21 20:21 Intake & Output 07/25/21 07/25/21 07/26/21 06:59 18:59 06:59 Intake Total 480 1060 Output Total 450 Balance 30 1060 Weight 103.2 kg 103.2 kg Intake: Oral 480 1060 Output: Urine 450 Other: # Voids 3 1 - Exam Patient's mental status, speech and language functions are normal. No aphasia. No dysarthria. Cranial nerves pupils are round and reacting, visual moreno are full on confrontation with no neglect. Extraocular muscles are intact. Patient has mild left facial weakness, better than yesterday. Tongue protrudes to the midline. Facial sensations normal. On muscle strength testing, there is mild to moderate left pronator drift. It does not droop as much as compared to yesterday. His strength is normal in the right arm and right leg. On the left side his deltoid is 5-, biceps 5, triceps 5, lopper 5-. Strength of the lower extremities are normal. Reflexes are 2+ in the right upper limb, 3 in the left upper limb. Knees are 3, ankles 1+ on the right, 2+ to 3 on the left. Patient has Babinski only on the left. Sensory touch is equal, except left hand and forearm which is decreased as compared to the right. Patient has kebi-me-qlebdmky ataxia for [id number]-[id number] testing on the left. No ataxia in the leg. Gait deferred. - Labs CBC & Chem 7: 07/23/21 17:54 07/24/21 12:11 Labs: Abnormal Lab Results - Last 24 Hours (Table) 07/25/21 07/25/21 Range/Units 05:41 16:50 POC Glucose (mg/dL) 101 H 126 H (75-99) mg/dL Assessment and Plan Assessment: * Acute ischemic stroke involving right basal ganglia, and right frontal parietal subcortical white matter, in the right MCA vascular territory. Event appears embolic in nature. Rule out cardiac source. * Hypertension * Diabetes * Tobacco use * Recently diagnosed neck mass, malignancy. No evidence of metastatic disease. Plan: * MRI of the brain revealed evolving acute infarct in the right middle cerebral artery distribution involving portions of the right frontal and temporal lobe. No suspicious enhancing masses to suggest metastatic disease to the brain. * MRA of the neck revealed no significant stenosis in the common or internal carotid arteries bilaterally. * MRA of the brain revealed abnormality distal right middle cerebral artery with abrupt tapering suggesting significant narrowing. Suspect there is complete occlusion of one of the branching vessels, both which would help account for the acute infarct. Consider direct catheter angiogram. * Patient will be started on dual antiplatelet medication including aspirin 81 mg and Plavix 75 mg because of right MCA stenosis. Patient is clinically better. No need for neuro intervention at this time. * Computed tomography scan of abdomen and pelvis and the chest showed no metastasis. * Carotid Doppler revealed mild to moderate atherosclerotic change at the bilateral bifurcations. No hemodynamically significant ICA stenosis on either side. Antegrade flow in both vertebral arteries. Incidental right upper cervical lymphadenopathy measuring up to 3.4 cm short axis. * 2-D echo revealed normal left ventricular size. Moderate concentric LVH. EF is between 55-60%. Agitated saline documented no interatrial or interventric ular septal defect. * Telemetry monitoring showing normal sinus rhythm. No other arrhythmias. * May consider slowly improving the blood pressure. Treat if blood pressure > 180/110. * Lipid panel with cholesterol 163, LDL 110, HDL 31 and triglycerides 107. Continue Lipitor 20 mg. * Hemoglobin A1c 5.9 * PT and OT. * Start heparin 5000 units subcu twice a day for DVT prophylaxis.
[2021-07-26] MEDS: HEPARIN SODIUM,PORCINE/PF 5,000 UNIT/0.5 ML SYRINGE SQ SCH ×2 (00:12→08:42)
--- NOTE | 2021-07-26 06:51 | P.PN ---
Progress Note - Text Accept for IPR, will require insurance authorization.
[2021-07-26] MEDS: INSULIN ASPART (NovoLOG) 100 UNIT/ML VIAL SQ SCH (07:05)
[2021-07-26] MEDS: NICOTINE 14MG/24HR PATCH TRANSDERM SCH (08:39)
[2021-07-26] MEDS: PANTOPRAZOLE 40 MG TABLET PO SCH (08:40)
[2021-07-26] MEDS: amLODIPine 5 MG TAB PO SCH (08:40)
[2021-07-26] MEDS: METOPROLOL SUCCINATE (ER) 100 MG TAB.ER.24H PO SCH (08:40)
[2021-07-26] MEDS: polyethylene glycoL 3350 17 GM POWD.PACK PO SCH ×2 (08:40→08:48)
[2021-07-26] MEDS: CLOPIDOGREL 75 MG TAB PO SCH (08:40)
[2021-07-26] MEDS: SENNOSIDES-DOCUSATE SODIUM 1 EACH TAB PO SCH (08:47)
[2021-07-26] MEDS ORDERED: ATORVASTATIN 40 MG TAB PO SCH (09:00)
[2021-07-26] MEDS ORDERED: ASPIRIN 81 MG PO SCH (09:00)
[2021-07-26] MEDS: LOSARTAN-HCTZ 50-12.5 MG 1 EACH TAB PO SCH (10:40)
[2021-07-26] MEDS ORDERED: ALBUTEROL NEBULIZED 2.5 MG/3 ML INHALATION PRN (11:38)
[2021-07-26] MEDS ORDERED: MORPHINE ORAL SOLN 10 MG/5 ML CUP PO PRN (12:46)
--- NOTE | 2021-07-26 14:18 | P.PN ---
Subjective Progress Note Date: 07/26/21 Principal diagnosis: CVA Patient is alert and oriented, left arm seems stronger than previously. Plan is for rehab today, we are still awaiting pathology from outside hospital Objective - Vital Signs Vital signs: Vital Signs Temp 97.9 F 07/26/21 04:00 Pulse 63 07/26/21 04:00 Resp 18 07/26/21 04:00 BP 178/100 07/26/21 04:00 Pulse Ox 96 07/26/21 04:00 Intake & Output 07/25/21 07/26/21 07/26/21 18:59 06:59 18:59 Intake Total 1060 720 240 Balance 1060 720 240 Weight 103.2 kg 104 kg Intake: Oral 1060 720 240 Other: # Voids 1 3 1 - Exam Alert, Oriented, poor Historian Neck: Right sided mass Slurred speech Left arm weakness Poor dentition Heart Tachy Abd: obese soft nt Lungs cta Ext: BLE l<R - Labs CBC & Chem 7: 07/23/21 17:54 07/24/21 12:11 Labs: Abnormal Lab Results - Last 24 Hours (Table) 07/25/21 Range/Units 16:50 POC Glucose (mg/dL) 126 H (75-99) mg/dL Assessment and Plan Plan: CVA with Left sided weakness: - Plan for IPR [facility] Right Neck Mass: - Will obtain records from [facility], Patient states recent biopsy, although they would not start treatment until he has teeth - Staging CTs - MRI of Brain with CVA no mets Malignancy related pain: - Morphine Sulfate ER - Bowel regimen Second request placed for records, in our office as well. Will await path and final diagnosis and determine treatment plan Patient needs to see oral surgeon, hoping to have oral surgeon assess and pull teeth prior to starting treatment. Physician Attest: I have completed the full history and physical and agree with above dictation, dictated as a ascribe.
[2021-07-26 14:56] VITALS: TEMP 97.7
[2021-07-26 15:04] VITALS: BP 141/91; RESP 16
[2021-07-26 15:45] VITALS: PULSE 88
--- NOTE | 2021-07-26 15:45 | P.DS ---
Providers Date of admission: 07/23/21 21:42 Attending physician: Romel Kessler Consults: 07/23/21 21:43 Consult Physician Routine Consulting Provider: Sergio Gonzales Consult Reason/Comments: Recent CVA Do you want consulting provider notified?: Yes, Notify in am 07/23/21 21:47 Consult Physician Routine Consulting Provider: Dane Ulloa Consult Reason/Comments: Right neck mass Do you want consulting provider notified?: Yes, Notify in am 07/24/21 08:44 Consult Physician Routine Consulting Provider: Vinicio Rodriges Consult Reason/Comments: Hypodensities in Brain ? Malignancie Do you want consulting provider notified?: Yes 07/25/21 09:16 Consult Physician Routine Consulting Provider: Michael Abbott Consult Reason/Comments: eval for inpatient rehab Do you want consulting provider notified?: Yes Primary care physician: Stated None Hospital Course: Final diagnoses -Subacute cerebral vascular infarct involving the right middle cerebral artery territory probably thrombotic in the right intracapsular area involving left side of the body. -Mass in the neck area which was biopsied probably squamous cell carcinoma or oropharyngeal carcinoma, oncology evaluated the patient metastatic workup is negative further management as an outpatient. -Nicotine use: Counseling was provided -Hyperlipidemia -Hypertension -Depression -FULL CODE Discharge disposition Patient is stable from a medical standpoint for discharge to the [facility] inpatient rehab. Patient will follow-up with oncology as well as radiation oncology, neurology, primary, cardiology. Patient was placed on an event monitor to rule out an arrhythmia as neurology requested this. Repeat labs in 2-3 days CBC and CMP. Hospital course Patient came into the on July 23 for an acute onset of left-sided weakness. MRI of the brain revealed an evolving acute infarct in the right middle cerebral artery distribution involving portions of the right frontal and temporal lobe. There is no suspicious enhancing masses to suggest metastatic disease to the brain. MRA of the neck revealed no significant stenosis in the common or internal carotid arteries bilaterally. MRA of the brain revealed abnormality of the distal right middle cerebral artery with abrupt tapering suggestive of significant narrowing. There was suspicion for a complete occlusion of one of the branching vessels both of which would help account for the acute infarct. Patient had a neurology consult. Patient was started on dual antiplatelet medication with aspirin and Plavix, as well as recommending 40 mg Lipitor. There was a computed tomography scan of the abdomen pelvis completed that showed no metastasis. Cardiac operative mild to moderate atherosclerotic change at the bilateral bifurcations. There is no hemodynamically significant ICA stenosis on the side. Antegrade flow in both foot tubal arteries. There was incidental right upper lobe cervical lymphadenopathy measuring up to 3.4 cm short axis. Echo revealed in EF of 55-60% with moderate concentric left ventricular hypertrophy. Patient has been in normal sinus rhythm with no arrhythmias noted. Treat blood pressures for less than 150s over 90s. Patient did have some hyperglycemia however his A1c was 5.9. He was given subcu separate in the hospital for DVT prophylaxis. Patient was a daily smoker, we started him on a nicotine patch and counseled extensively on smoking cessation. Patient was also evaluated by oncology this admission. 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 He has not started chemoradiation yet despite recommendation. The patient had developed right-sided neck swelling about 2-3 months ago without any difficulty swallowing or weight loss. He had a fine-needle aspiration completed which did not show malignancy. Patient's blood count this admission has remained within normal limits, his cocci panel has essentially been normal as well with some isolated hyperglycemia. His creatinine kinase was found to be 543, troponins negative cholesterol panel was within normal limits except an HDL of 31. COVID was negative 2. Patient is a past medical history significant for hyperlipidemia, hypertension, anxiety depression, PTSD and he states a history of COPD. He does take trelogy as well as albuterol inhaler as needed. We'll recommend patient to continue his trelogy and albuterol we will add some Claritin for a postnasal drip. Vital signs have remained stable, his most recent blood pressure is 141/91 after his morning medications. He is 90% on room air afebrile and heart rate 78 sinus rhythm. 07/26/2021 Patient is medically cleared for discharge to inpatient rehab at [facility]. We completed the med rec and patient will continue on all her medications. He will follow-up with oncology and radiation oncology to continue treatment. Patient's alert and oriented 3, he does present with some left- sided weakness as well as facial droop. He is working with PT OT. Lungs are clear. S1-S2 is auscultated. Patient was fit with an event monitor today to rule out arrhythmia. Vital signs are stable today. Repeat labs in 2-3 days. Please see medication reconciliation for a list of current medications. Thank you for allowing us to participate in care of this patient. Patient Condition at Discharge: Stable Plan - Discharge Summary Discharge Rx Participant: Yes New Discharge Prescriptions: New polyethylene glycoL 3350 [Miralax] 17 gm PO DAILY packet amLODIPine [Norvasc] 5 mg PO DAILY #30 tab Pantoprazole [Protonix] 40 mg PO BID #60 tab Aspirin 81 mg PO DAILY #30 tab Nicotine 14Mg/24Hr Patch [Habitrol] 1 patch TRANSDERM DAILY #14 patch Atorvastatin [Lipitor] 40 mg PO DAILY #30 tab Clopidogrel [Plavix] 75 mg PO DAILY #30 tab Sennosides-Docusate Sodium [Senokot-S] 2 each PO BID tab Acetaminophen Tab [Tylenol] 650 mg PO Q6HR PRN tab PRN Reason: Pain Continue Metoprolol Succinate (ER) [Toprol XL] 100 mg PO DAILY Losartan/Hydrochlorothiazide [Losartan-Hctz 100-25 mg Tab] 1 tab PO DAILY Fluticasone/Umeclidin/Vilanter [Trelegy Ellipta 200-62.5-25] 1 puff INHALATION DAILY Albuterol Inhaler [Ventolin Hfa Inhaler] 1 puff INHALATION Q6H PRN PRN Reason: Shortness Of Breath Or Wheezing Discontinued Rosuvastatin Calcium [Crestor] 10 mg PO DAILY Discharge Medication List Losartan/Hydrochlorothiazide [Losartan-Hctz 100-25 mg Tab] 1 tab PO DAILY 07/23/21 [History] Metoprolol Succinate (ER) [Toprol XL] 100 mg PO DAILY 07/23/21 [History] Acetaminophen Tab [Tylenol] 650 mg PO Q6HR PRN tab 07/26/21 [Rx] Albuterol Inhaler [Ventolin Hfa Inhaler] 1 puff INHALATION Q6H PRN 07/26/21 [History] Aspirin 81 mg PO DAILY #30 tab 07/26/21 [Rx] Atorvastatin [Lipitor] 40 mg PO DAILY #30 tab 07/26/21 [Rx] Clopidogrel [Plavix] 75 mg PO DAILY #30 tab 07/26/21 [Rx] Fluticasone/Umeclidin/Vilanter [Trelegy Ellipta 200-62.5-25] 1 puff INHALATION DAILY 07/26/21 [History] Nicotine 14Mg/24Hr Patch [Habitrol] 1 patch TRANSDERM DAILY #14 patch 07/26/21 [Rx] Pantoprazole [Protonix] 40 mg PO BID #60 tab 07/26/21 [Rx] Sennosides-Docusate Sodium [Senokot-S] 2 each PO BID tab 07/26/21 [Rx] amLODIPine [Norvasc] 5 mg PO DAILY #30 tab 07/26/21 [Rx] polyethylene glycoL 3350 [Miralax] 17 gm PO DAILY packet 07/26/21 [Rx] Follow up Appointment(s)/Referral(s): Angus Cummings MD [STAFF PHYSICIAN] - 1 Week Dyan Fleming MD [REFERRING] - 1 Week Vinicio Rodriges MD [STAFF PHYSICIAN] - 1 Week None,Stated [Primary Care Provider] - 1-2 days Jt Camacho DO [STAFF PHYSICIAN] - 1 Week Ambulatory/Diagnostic Orders: Basic Metabolic Panel [LAB.AMB] Time Frame: 3 Days, Location: None Selected Complete Blood Count w/diff [LAB.AMB] Time Frame: 3 Days, Location: None Selected Activity/Diet/Wound Care/Special Instructions: Pt to be discharged on [facility] Re[facility] Patient is cleared by neurology prior to discharge We will do an event monitor on discharge to rule out cardiac arrhythmia source of emboli Educated on smoking cessation Discharge Disposition: TRANSFER TO SNF/ECF
--- NOTE | 2021-07-26 17:11 | P.GSCN ---
History of Present Illness Consult date: 07/26/21 Reason for Consult: Evaluate teeth prior to radiation and chemo Requesting physician: Romel Kessler History of present illness: Patient's a 56-year-old male came into the hospital with left-sided weakness secondary to subacute stroke. 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 Patient reports 2-3 months ago developed right-sided neck swelling. He sought your nose and throat specialist in [facility] who biopsied the lesion reported it was cancer. No records for this are available at this time. He was referred to an oral surgeon in [place] to extract some teeth prior to radiation and chemo and was unable to complete that treatment. Patient reported approximately week ago he was out fishing with friends developed left-sided weakness came to [facility] to reveal possible stroke. Patient is planning to be discharged soon is awaiting evaluation of of his dental situation prior to discharge. Review of Systems Patient reports weakness. Patient reports garbled words and some difficulty talking. - EENT Ears, nose, mouth and throat: Reports dental pain, Reports mouth pain, Reports neck fullness/pressure, Reports neck lump, Reports swelling in throat, Reports voice changes - Cardiovascular Cardiovascular Comment(s): Denies chest pain - Respiratory Respiratory Comment(s): Denies cough - Musculoskeletal Reports as per HPI, Reports limitation of motion - Neurological Reports as per HPI, Reports change in mentation, Reports change in speech, Reports gait dysfunction, Reports motor disturbance, Reports paralysis, Reports weakness - Psychiatric Psychiatric Comment(s): History of PTSD Reports anxiety Past Medical History Past Medical History: Hyperlipidemia, Hypertension History of Any Multi-Drug Resistant Organisms: None Reported Past Surgical History: No Surgical Hx Reported Past Psychological History: Anxiety, Depression, PTSD Smoking Status: Current every day smoker Past Alcohol Use History: None Reported Past Drug Use History: Marijuana - Past Family History Father History Unknown: Yes Mother Family Medical History: Congestive Heart Failure (CHF) Medications and Allergies Home Medications Medication Instructions Recorded Confirmed Type Losartan/Hydrochlorothiazide 1 tab PO DAILY 07/23/21 07/23/21 History [Losartan-Hctz 100-25 mg Tab] Metoprolol Succinate (ER) [Toprol 100 mg PO DAILY 07/23/21 07/23/21 History XL] Acetaminophen Tab [Tylenol] 650 mg PO Q6HR PRN tab 07/26/21 Rx Albuterol Inhaler [Ventolin Hfa 1 puff INHALATION Q6H PRN 07/26/21 07/26/21 History Inhaler] Aspirin 81 mg PO DAILY #30 tab 07/26/21 Rx Atorvastatin [Lipitor] 40 mg PO DAILY #30 tab 07/26/21 Rx Clopidogrel [Plavix] 75 mg PO DAILY #30 tab 07/26/21 Rx Fluticasone/Umeclidin/Vilanter 1 puff INHALATION DAILY 07/26/21 07/26/21 History [Trelegy Ellipta 200-62.5-25] Loratadine [Claritin] 10 mg PO DAILY #30 tab 07/26/21 Rx Nicotine 14Mg/24Hr Patch [Habitrol] 1 patch TRANSDERM DAILY #14 patch 07/26/21 Rx Pantoprazole [Protonix] 40 mg PO BID #60 tab 07/26/21 Rx Sennosides-Docusate Sodium 2 each PO BID tab 07/26/21 Rx [Senokot-S] amLODIPine [Norvasc] 5 mg PO DAILY #30 tab 07/26/21 Rx polyethylene glycoL 3350 [Miralax] 17 gm PO DAILY packet 07/26/21 Rx Allergies Allergy/AdvReac Type Severity Reaction Status Date / Time No Known Allergies Allergy Verified 07/23/21 19:39 Surgical - Exam Vital Signs Temp Pulse Resp BP Pulse Ox 97.6 F 94 18 170/113 93 L 07/23/21 17:05 07/23/21 17:05 07/23/21 17:05 07/23/21 17:05 07/23/21 17:05 Patient is up in chair talking with son. Patient's words make sense and he's alert and oriented 3. Patient's stories were rambling. Son reported this was a change since the stroke. Patient denied any breathing trouble headache or vision changes. - General well developed - Eyes PERRL - ENT Patient has chronic periodontal disease with limited mouth opening. The patient has periodontitis around his posterior molars on the lower. He has missing t eeth in the posterior. The patient has a mass of the right peritonsillar area with pain on palpation. After the tongue was pushed back a large ulcer was seen on the right peritonsillar tongue intersection. Unable to gauge the exact size due to patient gagging. The second molar near the tumor would most likely be required to for extraction. This would lessen the likelihood of radiation necrosis in the future. The patient also has a very loose molar on the opposite side that may be in the field of radiation and should be extracted prior. poor care home Results - Labs 07/23/21 17:54 07/24/21 12:11 Abnormal Lab Results - Last 24 Hours (Table) 07/25/21 Range/Units 16:50 POC Glucose (mg/dL) 126 H (75-99) mg/dL Assessment and Plan Assessment: Severe periodontal disease of the mandibular molars. Plan: The patient's diagnosis is most likely going to be confirmed as squamous cell carcinoma thus resulting in the need for chemo and radiation. His posterior mandibular molars are in disrepair and would ideally be extracted 10-14 days prior to starting any radiation. Patient's prior stumbling points appeared to be social in nature. Spoke with Dr. Rodriges about the possibility of involving a social media marketing analyst to help in this regard. Spoke with his son and the patient about aching appointment JUAN DIEGO with me for extraction of at least 2 molars. Patient and son seemed amenable to this plan. Time with Patient: Greater than 30
--- NOTE | 2021-07-26 17:28 | P.PN ---
Subjective Progress Note Date: 07/26/21 Patient was seen for a follow-up. Patient states he is feeling much better. His arm is not as numb. He is moving around better, not leaning as much as before. Still complaining of weakness of the left arm. No headache. Objective - Vital Signs Vital signs: Vital Signs Temp 97.7 F 07/26/21 08:00 Pulse 83 07/26/21 08:00 Resp 18 07/26/21 08:00 BP 182/97 07/26/21 08:00 Pulse Ox 99 07/26/21 08:00 Intake & Output 07/25/21 07/26/21 07/26/21 18:59 06:59 18:59 Intake Total 1060 720 540 Balance 1060 720 540 Weight 103.2 kg 104 kg Intake: Oral 1060 720 540 Other: # Voids 1 3 1 - Exam Patient's mental status, speech and language functions are normal. No aphasia. No dysarthria. Cranial nerves pupils are round and reacting, visual moreno are full on confrontation with no neglect. Extraocular muscles are intact. Patient has very mild left facial weakness, better than yesterday. Tongue protrudes to the midline. Facial sensations normal. On muscle strength testing, there is mild to moderate left pronator drift. It does not droop as much as compared to yesterday, does not hit the bed. His strength is normal in the right arm and right leg. On the left side his deltoid is 5-, biceps 5, triceps 5, critical care nurse practitioner 5-. Strength of the lower extremities are normal. Reflexes are 2+ in the right upper limb, 3 in the left upper limb. Knees are 3, ankles 1+ on the right, 2+ to 3 on the left. Patient has Babinski only on the left. Sensory touch is equal, except left hand which is decreased as compared to the right. No neglect on double simultaneous stimulation. Patient has mild ataxia for [id number] testing on the left. No ataxia in the leg. Gait deferred. - Labs CBC & Chem 7: 07/23/21 17:54 07/24/21 12:11 Labs: Abnormal Lab Results - Last 24 Hours (Table) 07/25/21 Range/Units 16:50 POC Glucose (mg/dL) 126 H (75-99) mg/dL Assessment and Plan Assessment: * Acute ischemic stroke involving right basal ganglia, and right frontal parietal subcortical white matter, in the right MCA vascular territory. Event appears embolic in nature. Rule out cardiac source. * Hypertension * Diabetes * Tobacco use * Recently diagnosed right neck mass, probable malignancy. Outside records still pending. No evidence of metastatic disease. Plan: * MRI of the brain revealed evolving acute infarct in the right middle cerebral artery distribution involving portions of the right frontal and temporal lobe. No suspicious enhancing masses to suggest metastatic disease to the brain. * MRA of the neck revealed no significant stenosis in the common or internal carotid arteries bilaterally. * MRA of the brain revealed abnormality distal right middle cerebral artery with abrupt tapering suggesting significant narrowing. Suspect there is complete occlusion of one of the branching vessels, both which would help account for the acute infarct. Consider direct catheter angiogram. * Continue dual antiplatelet medication including aspirin 81 mg and Plavix 75 mg because of right MCA stenosis. Patient is clinically better. No need for neuro intervention at this time. * Computed tomography scan of abdomen and pelvis and the chest showed no metastasis. * Carotid Doppler revealed mild to moderate atherosclerotic change at the bilateral bifurcations. No hemodynamically significant ICA stenosis on either side. Antegrade flow in both vertebral arteries. Incidental right upper cervical lymphadenopathy measuring up to 3.4 cm short axis. * 2-D echo revealed normal left ventricular size. Moderate concentric LVH. EF is between 55-60%. Agitated saline documented no interatrial or interv entricular septal defect. * Telemetry monitoring showing normal sinus rhythm. No other arrhythmias. * May consider slowly improving the blood pressure. Treat blood pressure <150/90. * Lipid panel with cholesterol 163, LDL 110, HDL 31 and triglycerides 107. Continue Lipitor 20 mg. * Hemoglobin A1c 5.9 * PT and OT. * Start heparin 5000 units subcu twice a day for DVT prophylaxis. * Patient to be transferred to inpatient rehabilitation.
[2021-07-26] MEDS ORDERED: MORPHINE SULFATE ER 15 MG TABLET PO SCH (21:00)
== END 2021-07-26 17:45 | DRG 66 ==
LOC: EC 17:02 → 3SCARD 21:42
PROVIDERS: ADMIT Hospitalist; ATTEND Hospitalist
DX: I63.511 Cerebral infarction due to unspecified occlusion or stenosis of right middle cerebral artery (principal); R53.1 Weakness; C10.9 Malignant neoplasm of oropharynx, unspecified; E11.65 Type 2 diabetes mellitus with hyperglycemia; E78.5 Hyperlipidemia, unspecified; F17.200 Nicotine dependence, unspecified, uncomplicated; F32.9 Major depressive disorder, single episode, unspecified; F43.10 Post-traumatic stress disorder, unspecified; J44.9 Chronic obstructive pulmonary disease, unspecified; R13.10 Dysphagia, unspecified; R62.7 Adult failure to thrive; R29.810 Facial weakness; K05.6 Periodontal disease, unspecified; I10 Essential (primary) hypertension; Z20.822 Contact with and (suspected) exposure to COVID-19; Z79.02 Long term (current) use of antithrombotics/antiplatelets; Z79.82 Long term (current) use of aspirin; Z79.899 Other long term (current) drug therapy; Z82.49 Family history of ischemic heart disease and other diseases of the circulatory system; Z85.89 Personal history of malignant neoplasm of other organs and systems
CPT/HCPCS: 36415; 70450; 70460; 70544; 70549; 70553; 71046; 71260; 74177; 80048; 80053; 80061; 82550; 83036; 83735; 83880; 84484; 85025; 85610; 85730; 87635; 93005; 93270; 93306; 93880; 94640; 99285

== ENCOUNTER → 2021-08-18 | Outpatient (CLI) | payer MEDICARE, OTHER ==
--- NOTE | 2021-08-22 09:01 | PE ---
EXAMINATION TYPE: PET CT fusion skull to thigh DATE OF EXAM: 08/18/2021 COMPARISON: Most recent CT July 24, 2021 HISTORY: Newly diagnosed squamous cell cancer on the recent right tonsillar mass biopsy TECHNIQUE: Following the intravenous administration of 7.85 mCi of F-18 FDG, whole body images are p erformed from the skull base to the midthigh. Images are reviewed on the computer in the coronal, ax ial, and sagittal planes. Reconstructed rotating images are created on independent workstation and r eviewed on the computer. A localization and attenuation correction CT is performed in conjunction w ith the PET scan. Blood glucose level equals 104. SCAN: Initial Scan FINDINGS: SKULL BASE AND NECK: Asymmetric right posterior tongue base or tonsillar hypermetabolic mass corresp onding to biopsy-proven carcinoma measures roughly 2.9 x 2.8 cm axial image 42, max SUV is 8.96. There is abnormal solid and cystic hypermetabolic mass or adenopathy inferior and lateral to this. Mo st inferior lesion at level of right hyoid bone measures 2.3 x 1.6 cm with abnormal hypermetabolic up take, max SUV is 5.68 on axial image 57. Superior and lateral to this there is a larger solid and cys tic mass and/or less likely masses with hypermetabolic uptake in the solid component measuring 4.2 x 2.8 cm axial image 54. Max SUV is 5.19. CHEST, MEDIASTINUM, AND HILAR REGION: No areas of abnormal hypermetabolic uptake. ABDOMEN AND PELVIS: No areas of abnormal hypermetabolic uptake. Normal excretion. Focus of increased uptake along course of right ureter. OSSEOUS STRUCTURES: No areas of abnormal hypermetabolic uptake. OTHER CT: Mild calcified plaque bilateral carotid bulb level. Moderate coronary artery calcification. Small-sized hiatal hernia. Prostate gland upper limits of normal in size. Adjacent scattered pelvic p hleboliths. Poorly distended bladder. Mild to moderate calcified plaque of the aorta extends into bra nch vessels. Lower lumbar level facet arthropathy. IMPRESSION: Confirmation of right tongue base or tonsillar neoplasm with right neck adenopathy extend ing to level of hyoid bone. No distal metastatic disease.
== END | disposition home or self-care (01) ==
LOC: RADPETMAIN 16:16
PROVIDERS: ATTEND Internal Medicine Hematology & Oncology
DX: C09.9 Malignant neoplasm of tonsil, unspecified (principal)
CPT/HCPCS: 78815; A9552